=== PATIENT | male | born 1975 | race American Indian/Alaskan Native ===

== ENCOUNTER 2018-01-29 04:50 | Emergency (ER) | payer SELFPAY ==
[2018-01-29 04:58] VITALS: BP 151/93
[2018-01-29] MEDS ORDERED: TYLENOL PO ONE (05:59)
--- NOTE | 2018-01-29 07:57 | Emergency Department Report ---
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 He reports the headache has been on and off since he had his wisdom tooth removed on December 08. He has tried [id number] Tylenol, friable to no avail. He reports the pain gets worse after bending over. He denies head trauma, nasal drainage, close spaces, chest pain, dizziness, difficulty breathing, difficulty swallowing, neck stiffness, fever or sick contacts - ROS Review of Systems: All other systems are unremarkable except for documentation HPI - Exam Vital Signs: Vital Signs 01/29/18 04:53 Temperature 98.9 F Pulse Rate 83 Respiratory 18 Rate Blood Pressure 151/93 O2 Sat by Pulse 98 Oximetry Physical Exam: General: Alert and oriented 3, MAEW, active, no distress or discomfort Neuro: No focal neuro deficit, CN II-XII intact, normal gait, reflexes normal, no focal neuro deficits HEENT: normocephalic, tympanic membrane clear, external ears normal, PEERLA, nasal turbinates pale and boggy, TTP left ethmoid sinuses, oropharynx moist, uvula midline, tongue normal, no trismus, gingival enlargement, Cardio: S1-S2, normal sinus rhythm, normal heart sounds, no ectopy, murmurs Respiratory: Lungs clear to auscultate, even and unlabored, no distress noted MSE screening note: Focused history and physical exam performed. Due to findings the following was ordered: ED Medical Decision Making - Lab Data Temp Pulse Resp BP Pulse Ox 98.9 F 83 18 151/93 98 01/29/18 04:53 01/29/18 04:53 01/29/18 04:53 01/29/18 04:53 01/29/18 04:53 - Medical Decision Making During the course of ED, all other systems are unremarkable except for documentation in HPI. Patient was sent home with prescriptions for Augmentin, Claritin and Ibuprofen, instructed to follow up with his PCP, he verbalized understanding - Differential Diagnosis Sinusitis, Headache ED Disposition for MSE Clinical Impression: Sinusitis, acute Qualifiers: Sinusitis location: ethmoidal Recurrence: non-recurrent Qualified Code(s): J01.20 - Acute ethmoidal sinusitis, unspecified Disposition: DC-01 TO HOME OR SELFCARE Is pt being admited?: No Does the pt Need Aspirin: No Condition: Stable Instructions: Sinusitis (ED) Additional Instructions: Take medications as directed. No drinking and driving while taking medication. Follow-up with the selective referral given at discharge. Return back to the ED for worsening symptoms are concerns Prescriptions: Amoxicillin/Potassium Clav [Augmentin 875-125 Tablet] 1 each PO BID #20 tablet Ibuprofen 800 mg PO TID PRN #30 tablet PRN Reason: Pain , Severe (7-10) Loratadine [Claritin] 10 mg PO DAILY #15 tablet Referrals: PRIMARY CARE, [Primary Care Provider] - 3-5 Days [facility] [Outside] - 3-5 Days Forms: Work/School Release Form(ED) Time of Disposition: 08:04
== END 2018-01-29 08:11 | disposition home or self-care (01) ==
LOC: ED 04:50
DX: J01.20 Acute ethmoidal sinusitis, unspecified (principal)
CPT/HCPCS: 99282

== ENCOUNTER 2020-03-24 17:47 | Emergency (ER) | payer SELFPAY ==
[2020-03-24 18:38] LABS: Basophils # (Auto) 0.1 K/mm3 (0.0-0.1); Eosinophils # (Auto) 0.2 K/mm3 (0.0-0.4); Eosinophils % (Auto) 2.1 % (0.0-4.3); Monocytes # (Auto) 0.7 K/mm3 (0.0-0.8); Monocytes % (Auto) 6.9 % (0.0-7.3)
[2020-03-24 19:03] LABS: Alanine Aminotransferase 34 units/L (7-56); Albumin 4.5 g/dL (3.9-5); BUN/Creatinine Ratio 15; Blood Urea Nitrogen 12 mg/dL (9-20); Calcium 9.3 mg/dL (8.4-10.2); Hemolysis Index 16
[2020-03-24 19:11] LABS: Bilirubin,Direct < 0.2 mg/dL (0-0.2)
[2020-03-24 19:13] LABS: Hemoglobin 15.1 gm/dl (11.8-15.2); Mean Corpuscular HGB Conc 32 % (32-34); Mean Corpuscular Volume 58 fl (84-94); Red Blood Count > 8.00 M/mm3 (3.65-5.03)
[2020-03-24 19:14] LABS: Basophils % (Auto) 0.7 % (0.0-1.8); Hematocrit 47.6 % (35.5-45.6); Lymphocytes # (Auto) 3.7 K/mm3 (1.2-5.4); Lymphocytes % (Auto) 38.7 % (13.4-35.0); Platelet Count 187 K/mm3 (140-440); Red Cell Distribution Width 18.7 % (13.2-15.2)
--- NOTE | 2020-03-24 19:40 | XRay Report ---
CHEST 2 VIEWS INDICATION / CLINICAL INFORMATION: chest pain. COMPARISON: None available. FINDINGS: SUPPORT DEVICES: None. HEART / MEDIASTINUM: No significant abnormality. LUNGS / PLEURA: No significant pulmonary or pleural abnormality. No pneumothorax. ADDITIONAL FINDINGS: No significant additional findings. IMPRESSION: 1. No acute findings. Signer Name: Juan J Patel MD Signed: 03/24/2020 7:35 PM Workstation Name: [id number]
--- NOTE | 2020-03-24 20:44 | Emergency Department Report ---
ED Chest Pain HPI - General Chief Complaint: Chest Pain Stated Complaint: CP Time Seen by Provider: 03/24/20 20:13 Source: patient Mode of arrival: Ambulatory Limitations: No Limitations - History of Present Illness Initial Comments: 44-year-old male with a past medical history of probable hypertension never medically treated and smoker presents to the hospital complaining of 1 month of intermittent left arm pain and paresthesias radiating to upper chest. 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 He states that the pain is worse when lying on his abdomen at rest and with positioning the arm in certain positions. He describes it as a tingling/shocking pain. He denies pain with movement or palpation. He denies recent trauma, neck, or shoulder injury. He denies chest pressure, nausea, vomiting, diaphoresis, exertional chest pain, calf tenderness, leg edema, or history of PE/DVT. Patient states his father had an VA at age 71. patient recently started to see a new primary care doctor Dr. Ramírez Toribio 2 weeks ago. He had his second visit today and was sent to the ED for evaluation - Related Data Previous Rx's Medication Instructions Recorded Last Taken Type Amoxicillin/Potassium Clav 1 each PO BID #20 tablet 01/29/18 Unknown Rx [Augmentin 875-125 Tablet] Ibuprofen [Ibuprofen 800] 800 mg PO TID PRN #30 tablet 01/29/18 Unknown Rx Loratadine (Nf) [Claritin] 10 mg PO DAILY #15 tablet 01/29/18 Unknown Rx Amlodipine Besylate [Norvasc] 5 mg PO DAILY #30 tablet 03/24/20 Unknown Rx Aspirin 325 mg PO DAILY #30 tablet 03/24/20 Unknown Rx Gabapentin 300 mg PO TID #60 capsule 03/24/20 Unknown Rx Allergies Allergy/AdvReac Type Severity Reaction Status Date / Time No Known Allergies Allergy Verified 01/29/18 04:57 Heart Score - HEART Score History: Slightly suspicious EKG: Non-specific Age: 45-65 Risk factors: 1-2 risk factors Troponin: < normal limit HEART Score: 3 ED Review of Systems ROS: Stated complaint: CP Other details as noted in HPI Comment: All other systems reviewed and negative ED Past Medical Hx - Past Medical History Previous Medical History?: Yes Hx Hypertension: Yes - Surgical History Past Surgical History?: No - Social History Smoking Status: Current Every Day Smoker Substance Use Type: Alcohol - Medications Home Medications: Home Medications Medication Instructions Recorded Confirmed Last Taken Type Amoxicillin/Potassium Clav 1 each PO BID #20 tablet 01/29/18 Unknown Rx [Augmentin 875-125 Tablet] Ibuprofen [Ibuprofen 800] 800 mg PO TID PRN #30 tablet 01/29/18 Unknown Rx Loratadine (Nf) [Claritin] 10 mg PO DAILY #15 tablet 01/29/18 Unknown Rx Amlodipine Besylate [Norvasc] 5 mg PO DAILY #30 tablet 03/24/20 Unknown Rx Aspirin 325 mg PO DAILY #30 tablet 03/24/20 Unknown Rx Gabapentin 300 mg PO TID #60 capsule 03/24/20 Unknown Rx ED Physical Exam - General Limitations: No Limitations - Other Other exam information: General: No acute distress Head: Atraumatic Eyes: normal appearance ENT: Moist mucous membranes Neck: Normal appearance, no midline tenderness Chest: Clear to auscultation bilaterally CV: Regular rate and rhythm Abdomen: Soft, normal bowel sounds, nontender, nondistended, no rebound or guarding Back: Normal inspection Extremity: Normal inspection, full range of motion Neuro: Alert O x 3, no facial asymmetry, speech clear, no gross motor sensory d eficit Psych: Appropriate behavior Skin: No rash ED Course Vital Signs 03/24/20 03/24/20 18:04 21:00 Temperature 98.6 F Pulse Rate 89 74 Respiratory 18 22 Rate Blood Pressure 150/100 144/95 O2 Sat by Pulse 98 97 Oximetry CESAR score - Cesar Score Age > 65: (0) No Aspirin use within the Past 7 Days: (0) No 3 or more CAD Risk Factors: (0) No 2 or more Angina events in past 24 hrs: (0) No Known CAD with more than 50% Stenosis: (0) No Elevated Cardiac Markers: (0) No ST Deviation Greater than 0.5mm: (0) No CESAR Score: 0 ED Medical Decision Making - Lab Data Result diagrams: 03/24/20 20:44 03/24/20 18:22 Lab Results 03/24/20 03/24/20 03/24/20 Range/Units 18:22 18:22 18:22 WBC 9.5 (4.5-11.0) K/mm3 RBC > 8.00 H (3.65-5.03) M/mm3 Hgb 15.1 (11.8-15.2) gm/dl Hct 47.6 H (35.5-45.6) % MCV 58 L (84-94) fl MCH 18 L (28-32) pg MCHC 32 (32-34) % RDW 18.7 H (13.2-15.2) % Plt Count 187 (140-440) K/mm3 Lymph % (Auto) 38.7 H (13.4-35.0) % Glascock % (Auto) 6.9 (0.0-7.3) % Eos % (Auto) 2.1 (0.0-4.3) % Baso % (Auto) 0.7 (0.0-1.8) % Lymph # 3.7 (1.2-5.4) K/mm3 Glascock # 0.7 (0.0-0.8) K/mm3 Eos # 0.2 (0.0-0.4) K/mm3 Baso # 0.1 (0.0-0.1) K/mm3 Seg Neutrophils % 51.6 (40.0-70.0) % Seg Neutrophils # 4.9 (1.8-7.7) K/mm3 Sodium 142 (137-145) mmol/L Potassium 3.8 (3.6-5.0) mmol/L Chloride 104.4 (98-107) mmol/L Carbon Dioxide 23 (22-30) mmol/L Anion Gap 18 mmol/L BUN 12 (9-20) mg/dL Creatinine 0.8 (0.8-1.3) mg/dL Estimated GFR > 60 ml/min BUN/Creatinine Ratio 15 % Glucose 140 H (75-100) mg/dL Calcium 9.3 (8.4-10.2) mg/dL Total Bilirubin 0.40 (0.1-1.2) mg/dL Direct Bilirubin < 0.2 (0-0.2) mg/dL Indirect Bilirubin 0.2 mg/dL AST 21 (5-40) units/L ALT 34 (7-56) units/L Alkaline Phosphatase 104 (35-129) units/L Troponin T < 0.010 (0.00-0.029) ng/mL Total Protein 7.8 (6.3-8.2) g/dL Albumin 4.5 (3.9-5) g/dL Albumin/Globulin Ratio 1.4 % 03/24/20 03/24/20 Range/Units 20:44 20:44 WBC 11.8 H (4.5-11.0) K/mm3 RBC > 8.00 H (3.65-5.03) M/mm3 Hgb 14.9 (11.8-15.2) gm/dl Hct 47.2 H (35.5-45.6) % MCV 58 L (84-94) fl MCH 18 L (28-32) pg MCHC 32 (32-34) % RDW 18.3 H (13.2-15.2) % Plt Count 192 (140-440) K/mm3 Lymph % (Auto) (13.4-35.0) % Glascock % (Auto) (0.0-7.3) % Eos % (Auto) (0.0-4.3) % Baso % (Auto) (0.0-1.8) % Lymph # (1.2-5.4) K/mm3 Glascock # (0.0-0.8) K/mm3 Eos # (0.0-0.4) K/mm3 Baso # (0.0-0.1) K/mm3 Seg Neutrophils % (40.0-70.0) % Seg Neutrophils # (1.8-7.7) K/mm3 Sodium (137-145) mmol/L Potassium (3.6-5.0) mmol/L Chloride (98-107) mmol/L Carbon Dioxide (22-30) mmol/L Anion Gap mmol/L BUN (9-20) mg/dL Creatinine (0.8-1.3) mg/dL Estimated GFR ml/min BUN/Creatinine Ratio % Glucose (75-100) mg/dL Calcium (8.4-10.2) mg/dL Total Bilirubin (0.1-1.2) mg/dL Direct Bilirubin (0-0.2) mg/dL Indirect Bilirubin mg/dL AST (5-40) units/L ALT (7-56) units/L Alkaline Phosphatase (35-129) units/L Troponin T < 0.010 (0.00-0.029) ng/mL Total Protein (6.3-8.2) g/dL Albumin (3.9-5) g/dL Albumin/Globulin Ratio % - EKG Data -: EKG Interpreted by Me ([facility]) EKG shows normal: sinus rhythm, ST-T waves (No STEMI) Rate: normal - EKG Data 03/24/20 21:59 repeat ekg unchanged - Radiology Data Radiology results: report reviewed CHEST 2 VIEWS INDICATION / CLINICAL INFORMATION: chest pain. COMPARISON: None available. FINDINGS: SUPPORT DEVICES: None. HEART / MEDIASTINUM: No significant abnormality. LUNGS / PLEURA: No significant pulmonary or pleural abnormality. No pneumothorax. ADDITIONAL FINDINGS: No significant additional findings. IMPRESSION: 1. No acute findings. - Medical Decision Making Patient has a heart score of 3 therefore is a candidate for outpatient work-up. His pain is very atypical. Patient primarily has paresthesias and shooting pain from the shoulder down to the forearm that is worse with lying on his stomach and certain positional changes of his arm. He feels that at times pain radiates to the left upper chest area. He denies all associated symptoms including nausea, vomiting, shortness of breath, or diaphoresis. Patient has a EKG with LV[facility] which is unchanged x2 and 2- troponin levels. Patient's symptoms have also been ongoing x1 month. Symptoms are suggestive of nerve type of pain giving positional reproducibility and paresthesias sensation. Patient will be started on Neurontin to take for this pain. Continued outpatient recommending including recommendation for outpatient stress test. Chest pain referral form was faxed to [facility] to aid in close outpatient follow-up and stress testing. Patient will be empirically started on aspirin and Norvasc will be started for untreated hypertension. Pt encouraged to return if symptoms worsen. Critical Care Time: No Critical care attestation.: If time is entered above; I have spent that time in minutes in the direct care of this critically ill patient, excluding procedure time. ED Disposition Clinical Impression: Arm paresthesia, left, Atypical chest pain, Hypertension, Elevated red blood cell count Disposition: -01 TO HOME OR SELFCARE Is pt being admited?: No Does the pt Need Aspirin: No Condition: Stable Instructions: Chest Pain (ED), Hypertension (ED), Paresthesia (ED) Additional Instructions: Take the medication as prescribed. Follow-up with your doctor or doctor/clinic provided. Return if symptoms worsen as indicated by your discharge instructions. Please call the dog show judge to continue your outpatient heart evaluation. Your Information was faxed to the office as well Your red blood cell count is elevated. 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
[2020-03-24 21:11] VITALS: BP 144/95
[2020-03-24 21:14] LABS: Hematocrit 47.2 % (35.5-45.6); Hemoglobin 14.9 gm/dl (11.8-15.2); Mean Corpuscular HGB Conc 32 % (32-34); Platelet Count 192 K/mm3 (140-440); Red Cell Distribution Width 18.3 % (13.2-15.2)
[2020-03-24 21:21] LABS: Mean Corpuscular Volume 58 fl (84-94)
[2020-03-24 21:22] LABS: Red Blood Count > 8.00 M/mm3 (3.65-5.03)
[2020-03-24] MEDS ORDERED: ASPIRIN 325 MG TAB PO ONE (21:46)
== END 2020-03-24 22:21 | disposition home or self-care (01) ==
LOC: ED 17:47
DX: I10 Essential (primary) hypertension (principal); R20.2 Paresthesia of skin; R71.8 Other abnormality of red blood cells; R07.89 Other chest pain; F17.200 Nicotine dependence, unspecified, uncomplicated; Z79.899 Other long term (current) drug therapy
CPT/HCPCS: 36415; 71046; 80048; 80076; 84484; 85025; 85027; 93005